=== PATIENT | male | born 1975 | race Caucasian/White ===

== ENCOUNTER 2019-11-19 07:28 | Emergency (ER) | payer BC ==
[~2019-11-19] VITALS: Ht 172.7 cm; Wt 88.5 kg
[2019-11-19 07:41] VITALS: Ht 172.7 cm; Wt 88.5 kg
[2019-11-19 10:34] VITALS: BP 135/78
== END 2019-11-19 10:34 | disposition home or self-care (01) ==
LOC: ED 07:28
DX: S92.002A Unspecified fracture of left calcaneus, initial encounter for closed fracture (principal); F17.210 Nicotine dependence, cigarettes, uncomplicated; X58.XXXA Exposure to other specified factors, initial encounter; Y93.39 Activity, other involving climbing, rappelling and jumping off; Y92.89 Other specified places as the place of occurrence of the external cause; Y99.8 Other external cause status
CPT/HCPCS: 99406; J1885